=== PATIENT | female | born 1960 | race Two or more races ===

== ENCOUNTER 2020-06-21 08:00 | Inpatient (IN) | payer OTHER ==
[~2020-06-21] VITALS: Ht 152.4 cm; Wt 79.8 kg
[~2020-06-21 08:00] MED LIST: AVALIDE 150-12.1 TA1; KEPPRA500 MG; LAMICTAL100 MG; NABUMETONE500 MG PO; PERCOCET 5/3251 TAB PO
[2020-06-21] MEDS ORDERED: AVALIDE PO (10:13)
[2020-06-21] MEDS ORDERED: METFOR PO (10:14)
[2020-06-21] MEDS ORDERED: PREMIDONE PO (10:14)
[2020-06-21] MEDS ORDERED: DILTIAZEM ER60 MG PO (10:15)
[2020-06-21] MEDS ORDERED: SINGULAIR10 MG PO (10:15)
[2020-06-21] MEDS ORDERED: LOPID PO (10:17)
[2020-06-21] MEDS ORDERED: GRALISE600 MG PO (10:17)
[2020-06-21] MEDS ORDERED: DAPSONE25 MG PO (10:18)
[2020-06-21] MEDS ORDERED: [UNRECOGNIZED DRUG - OTHER] (10:19)
[2020-06-21] MEDS ORDERED: ABILIFY10 MG PO (10:20)
[2020-06-21] MEDS ORDERED: GEMFIBROZIL600 MG PO (10:21)
[2020-06-29] MEDS ORDERED: CLONAZEPAM1 MG (07:52)
[2020-06-29] MEDS ORDERED: DESVENLAFAXINE100 M3 (07:52)
[2020-06-29] MEDS ORDERED: PROAIR HFA8.5 GM (07:52)
[2020-06-29] MEDS ORDERED: CELECOXIB200 MG (07:52)
[2020-06-29] MEDS ORDERED: ZOLPIDEM TARTRA10 MG (07:53)
[2020-06-29] MEDS ORDERED: METFORMIN HCL500 M4 (07:53)
[2020-06-29] MEDS ORDERED: TRIAMCINOLONE A15 G1 (07:53)
[2020-06-29] MEDS ORDERED: PRIMIDONE50 MG (07:53)
[2020-06-29] MEDS ORDERED: ARIPIPRAZOLE5 MG (07:53)
== END 2020-07-01 17:57 | DRG 470 ==
LOC: SURH 06-28 05:50 → O/R 06-28 05:50 → SURH 06-28 07:00
PROVIDERS: ADMIT Orthopaedic Surgery; ATTEND Orthopaedic Surgery
PROC: 0SRD0J9 Replacement of Left Knee Joint with Synthetic Substitute, Cemented, Open Approach (ICD-10-PCS; principal; 2020-06-28 07:00)
DX: M17.12 Unilateral primary osteoarthritis, left knee (principal); D62 Acute posthemorrhagic anemia; E30.9 Disorder of puberty, unspecified; I10 Essential (primary) hypertension